=== PATIENT | male | born 1980 | race Caucasian/White ===

== ENCOUNTER 2020-02-23 18:36 | Emergency (ER) | payer OTHER, MEDICAID ==
[~2020-02-23] VITALS: Ht 180.3 cm; Wt 127.0 kg
[2020-02-23 19:00] LABS: ABSOLUTE EOSINOPHILS 0.1 thou/uL (0.0-0.7); ABSOLUTE LYMPHOCYTES 2.4 thou/uL (0.8-5.3); ABSOLUTE MONOCYTES 0.6 thou/uL (0.0-1.2); BASOPHILS 0.3 %; EOSINOPHILS 0.9 %; HEMATOCRIT 41.8 % (42.0-52.0); HEMOGLOBIN 14.4 gm/dL (14.0-18.0); LYMPHOCYTES 29.7 %; MCH 29.7 pg (26.0-34.0); MCHC 34.5 g/dL (28.0-37.0); MPV 7.4 fl. (7.2-11.1); NUCLEATED RBCS 0 /100WBC; PLATELET COUNT* 256 thou/uL (150-400); POLYS 62.1 %; RBC 4.85 mil/uL (4.50-6.00); RDW-CV 13.8 % (10.5-14.5)
[2020-02-23 19:10] LABS: CALCIUM 8.9 mg/dL (8.5-10.1); CREATININE 0.8 mg/dL (0.6-1.3)
[2020-02-23 19:11] LABS: APTT 25.6 Seconds (25.0-31.3); INR 1.1; PROTIME 10.8 Seconds (9.20-11.50)
[2020-02-23 19:23] LABS: ALBUMIN 3.7 g/dL (3.4-5.0); CK-MB MASS 2.4 ng/mL (<0.5-3.6); MAGNESIUM 1.6 mg/dL (1.8-2.4); TOTAL BILIRUBIN 0.8 mg/dL (<0.1-1.0); TOTAL PROTEIN 7.6 g/dL (6.4-8.2)
[2020-02-23] MEDS ORDERED: AEROCHAMBER PL1 EACH INH (21:05)
[2020-02-23] MEDS ORDERED: PROAIR HFA8.5 GM INH (21:05)
[2020-02-23 21:22] VITALS: BP 148/88
--- NOTE | 2020-02-24 10:16 | EKG ---
[place] [address] ELECTROCARDIOGRAM REPORT Name: LINDA SOTO Room: [facility]#: [id number] Admission: 02/23/20 Attend Phys: Discharge: 02/23/20 Date of : 80 Date of Service: 02/23/201840 Report #: [id number] THIS REPORT FOR: //name// [facility] ED Test Date: 2020-02-23 Test Time: 18:41:24 Pat Name: LINDA SOTO Department: Room: Gender: Regulator Inspector: ABEBE : 1980 Requested By: Don Edmonds Order Number: [id number] MD: Wesley Harrington Measurements Intervals [place] Rate: 92 P: 65 [place]: 161 QRS: 62 QRSD: 96 T: 34 QT: 346 QTc: 429 Interpretive Statements Sinus rhythm No previous ECG available for comparison Electronically Signed On 02-24-2020 10:14:59 CDT by Wesley Harrington [email or web address] <ELECTRONICALLY SIGNED> By: Wesley Harrington MD, [facility] 02/24/20 1014 40 40 Wesley Harrington MD, FACC /EPI
== END 2020-02-23 21:22 | disposition home or self-care (01) ==
LOC: M.ERS 18:36
PROVIDERS: Family Medicine
DX: J40 Bronchitis, not specified as acute or chronic (principal); F17.210 Nicotine dependence, cigarettes, uncomplicated; Z88.0 Allergy status to penicillin